=== PATIENT | female | born 1935 | race Caucasian/White ===

== ENCOUNTER 2019-08-11 17:10 | Emergency (ER) | payer MEDICARE, OTHER ==
[~2019-08-11] VITALS: Ht 162.6 cm; Wt 61.2 kg
[2019-08-11 17:12] VITALS: BP 144/42
[2019-08-11 17:57] LABS: ABSOLUTE BASOPHILS 0.1 thou/uL (0.0-0.2); ABSOLUTE EOSINOPHILS 0.3 thou/uL (0.0-0.7); ABSOLUTE LYMPHOCYTES 1.8 thou/uL (0.8-5.3); ABSOLUTE MONOCYTES 0.6 thou/uL (0.0-1.2); ABSOLUTE NEUTROPHILS 5.9 thou/uL (1.6-8.1); BASOPHILS 1.1 %; EOSINOPHILS 3.8 %; HEMOGLOBIN 12.9 gm/dL (12.0-15.0); LYMPHOCYTES 20.7 %; MCH 30.2 pg (26.0-34.0); MCHC 33.9 g/dL (28.0-37.0); MCV 89.1 fL (80.0-100.0); MONOCYTES 7.2 %; MPV 8.4 fl. (7.2-11.1); NUCLEATED RBCS 0 /100WBC; PLATELET COUNT* 177 thou/uL (150-400); POLYS 67.2 %; RBC 4.27 mil/uL (4.20-5.00); RDW-CV 14.8 % (10.5-14.5); WBC 8.9 thou/uL (4.0-11.0)
[2019-08-11 18:08] LABS: APTT 22.6 Seconds (25.0-31.3); PROTIME 10.7 Seconds (9.20-11.50)
[2019-08-11 18:10] LABS: CREATININE 0.9 mg/dL (0.6-1.3); POTASSIUM 3.5 mmol/L (3.5-5.1)
[2019-08-11 18:14] LABS: ALBUMIN 3.3 g/dL (3.4-5.0); TOTAL BILIRUBIN 0.3 mg/dL (<0.1-1.0)
[2019-08-11 20:50] VITALS: BP 134/34
--- NOTE | 2019-08-16 14:59 | EKG ---
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
== END 2019-08-11 20:50 | disposition short-term general hospital (02) ==
LOC: M.ERS 17:10 → M.TBA-ER 18:54 → M.ERS 18:54
PROVIDERS: Family Medicine
DX: S42.292A Other displaced fracture of upper end of left humerus, initial encounter for closed fracture (principal); S72.092A Other fracture of head and neck of left femur, initial encounter for closed fracture; S52.592A Other fractures of lower end of left radius, initial encounter for closed fracture; S52.612A Displaced fracture of left ulna styloid process, initial encounter for closed fracture; S72.142A Displaced intertrochanteric fracture of left femur, initial encounter for closed fracture; Z91.040 Latex allergy status; Z88.2 Allergy status to sulfonamides; W10.8XXA Fall (on) (from) other stairs and steps, initial encounter; Y93.89 Activity, other specified; Y92.098 Other place in other non-institutional residence as the place of occurrence of the external cause; Y99.8 Other external cause status